=== PATIENT | female | born 1970 | race Caucasian/White ===

== ENCOUNTER 2017-04-16 08:57 | Day surgery (SDC) | payer OTHER ==
--- NOTE | 2017-04-16 04:27 | PCM.PREANE ---
Preanesthetic Assessment - Anesthesia/Transfusion/Family Hx Anesthesia History: Prior Anesthesia Without Reaction Type of Anesthesia Reaction: Excessive Nausea/Vomiting Family History of Anesthesia Reaction: Yes Family History of Anesthesia Reaction, Other: change in behavior with mom after anesthesia Transfusion History: No Prior Transfusion(s) Intubation History: Unknown - Review of Systems General: No Symptoms, Fatigue Pulmonary: No Symptoms (smokes: 1/2pack cigarettes/day times 30 years.) Cardiovascular: Palpitations Gastrointestinal: No Symptoms Neurological: No Symptoms, Headache Other: Reports: Easy Bleeding, Easy Bruising, Thyroid Problems (hypothyroid), Sinus Problem (allergic rhinits), Depression, Anxiety - Physical Assessment NPO Status Date: 04/15/17 NPO Status Time: 20:30 Pulse: 57 O2 Sat by Pulse Oximetry: 98 Respiratory Rate: 16 Blood Pressure: 108/79 Temperature: 37.4 C Height: 1.63 m Weight: 69.4 kg ASA Class: 2 Mental Status: Alert & Oriented x3 Airway Class: Mallampati = 2 Dentition: Reports: Normal Dentition (wobbly teeth bottom 3 front.), Caries Thyro-Mental Finger Breadths: 3 Mouth Opening Finger Breadths: 3 ROM/Head Extension: Full Lungs: Clear to Auscultation, Normal Respiratory Effort Cardiovascular: Regular Rate, Regular Rhythm, No Murmurs - Allergies Allergies/Adverse Reactions: Allergies Allergy/AdvReac Type Severity Reaction Status Date / Time amoxicillin Allergy Rash Verified 10/02/15 09:13 guaifenesin Allergy Rash Verified 10/02/15 09:13 Iodine and Iodide Containing Allergy Nausea Verified 10/02/15 09:43 Produc pseudoephedrine Allergy Rash Verified 10/02/15 09:13 shellfish derived Allergy Swelling Verified 10/02/15 09:43 Sulfa (Sulfonamide Allergy Anaphylactic Verified 10/02/15 09:13 Antibiotics) Shock RESPAIRE-60 Allergy Rash Uncoded 10/02/15 09:13 - Anesthesia Plan Pre-Op Medication Ordered: None - Acknowledgements Anesthesia Type Planned: General Anesthesia Pt an Appropriate Candidate for the Planned Anesthesia: Yes Alternatives and Risks of Anesthesia Discussed w Pt/Guardian: Yes Pt/Guardian Understands and Agrees with Anesthesia Plan: Yes PreAnesthesia Questionnaire - CURRENT (IN HOUSE) MEDS Current Meds: Current Medications Lactated Ringer's (Ringers, Lactated) 1,000 mls @ 125 mls/hr IV ASDIRECTED [facility] Lidocaine/Sodium Bicarbonate (Buffered Lidocaine 1% In Ns 8.4%) 0.25 ml IV ONETIME PRN PRN Reason: Prior to IV Start Sodium Chloride (Saline Flush) 10 ml FLUSH ASDIRECTED PRN PRN Reason: Keep Vein Open Discontinued Medications Cefazolin Sodium (Ancef) Confirm Administered Dose 2 gm .ROUTE .STK-MED ONE Stop: 04/16/17 04:10 Dexamethasone (Dexamethasone) Confirm Administered Dose 20 mg .ROUTE .STK-MED ONE Stop: 04/16/17 04:10 Fentanyl (Sublimaze) Confirm Administered Dose 250 mcg .ROUTE .STK-MED ONE Stop: 04/16/17 04:11 Hydromorphone HCl (Dilaudid) Confirm Administered Dose 1 mg .ROUTE .STK-MED ONE Stop: 04/16/17 04:11 Lidocaine HCl (Xylocaine-Mpf 1%) Confirm Administered Dose 4 mls @ as directed .ROUTE .STK-MED ONE Stop: 04/16/17 04:10 Lactated Ringer's (Ringers, Lactated) Confirm Administered Dose 1,000 mls @ as directed .ROUTE .STK-MED ONE Stop: 04/16/17 04:10 Ketorolac Tromethamine (Toradol) Confirm Administered Dose 30 mg .ROUTE .STK- MED ONE Stop: 04/16/17 04:10 Midazolam HCl (Versed 1 Mg/Ml) Confirm Administered Dose 2 mg .ROUTE .STK-MED ONE Stop: 04/16/17 04:11 Ondansetron HCl (Zofran) Confirm Administered Dose 4 mg .ROUTE .STK-MED ONE Stop: 04/16/17 04:10 Propofol (Diprivan 20 Ml) Confirm Administered Dose 200 mg .ROUTE .STK-MED ONE Stop: 04/16/17 04:10 Rocuronium [place] (Zemuron) Confirm Administered Dose 50 mg .ROUTE .STK-MED ONE Stop: 04/16/17 04:10
[~2017-04-16 08:57] MED LIST: Dexamethasone 4 MG/ML 5 ML MDV ONE; HYDROmorphone 1 MG/ML Syringe ONE; Ketorolac 30 MG/ML SDV ONE; Lactated Ringers 1,000 ML ONE; Lidocaine 1% 4 ML ONE; Lidocaine 1%/Sod Bicarbonate in NS 8.4% 1 ML Syringe IV PRN; Midazolam 1 MG/ML 2 ML SDV ONE; Ondansetron 4 MG/2 ML SDV ONE; Propofol 200 MG/20 ML SDV ONE; Rocuronium 50 MG/5 ML Vial ONE; Sodium Chloride 0.9% 10 ML Syringe FLUSH PRN; ceFAZolin 1 GM Vial ONE; fentaNYL 250 MCG/5 ML SDV ONE
[2017-04-16] MEDS: Lactated Ringers 1,000 ML IV SCH ×2 (09:15→15:42)
[2017-04-16] MEDS ORDERED: Bupivacaine 0.5% 30 ML SDV ONE (09:37)
[2017-04-16] MEDS ORDERED: Lidocaine 1%/Sod Bicarbonate in NS 8.4% 1 ML Syringe PRN (09:39)
[2017-04-16] MEDS ORDERED: Scopolamine 1.5 MG Transdermal Patch TRDERM ONE (09:45)
--- NOTE | 2017-04-16 11:07 | PCM.HPR ---
H & P Addendum review - H & P Addendum Review Date of Original H & P: 04/14/17 Date Reviewed: 04/16/17 Time Reviewed: 11:07 Patient was Examined: No Changes
[2017-04-16] MEDS ORDERED: fentaNYL 100 MCG/2 ML SDV IVPUSH PRN (12:21)
[2017-04-16] MEDS ORDERED: HYDROmorphone 0.5 MG/0.5 ML Syringe IVPUSH PRN (12:21)
[2017-04-16] MEDS ORDERED: Meperidine PF 50 MG/ML Syringe IVPUSH PRN (12:21)
[2017-04-16] MEDS ORDERED: Ondansetron 4 MG/2 ML SDV IVPUSH PRN (12:21)
[2017-04-16] MEDS ORDERED: diphenhydrAMINE 50 MG/ML SDV IVPUSH PRN (12:21)
[2017-04-16] MEDS ORDERED: Propofol 200 MG/20 ML SDV ONE (12:24)
[2017-04-16] MEDS ORDERED: Phenylephrine 1 MG in Sodium Chloride 0.9% 10 ML IV SCH (12:30)
[2017-04-16] MEDS ORDERED: Neostigmine Methylsulfate 1 MG/ML 5 ML Syringe ONE (12:43)
--- NOTE | 2017-04-16 13:03 | PCM.POSTAN ---
POST ANESTHESIA ASSESSMENT - MENTAL STATUS Mental Status: Alert - VITAL SIGNS Pulse Rate: 77 SaO2: 98 Resp Rate: 18 Blood Pressure: 112/70 Temperature: 36.9 C - RESPIRATORY Respiratory Status: Respiratory Rate WNL, Airway Patent, O2 Saturation Stable, Supplemental Oxygen - CARDIOVASCULAR CV Status: Pulse Rate WNL, Blood Pressure Stable - GASTROINTESTINAL GI Status: No Symptoms - POST OP HYDRATION Hydration Status: Adequate & Stable
--- NOTE | 2017-04-16 13:15 | PCM48HPAN ---
Post Anesthesia Note - EVALUATION WITHIN 48HRS OF ANESTHETIC Vital Signs in Normal Range: Yes Patient Participated in Evaluation: Yes Respiratory Function Stable: Yes Airway Patent: Yes Cardiovascular Function Stable: Yes Hydration Status Stable: Yes Pain Control Satisfactory: Yes Nausea and Vomiting Control Satisfactory: Yes Mental Status Recovered: Yes
--- NOTE | 2017-04-16 13:24 | PCM.OPNOTE ---
- General Post-Op/Procedure Note Date of Surgery/Procedure: 04/16/17 Operative Procedure(s): Laparoscopic left salpingectomy with removal of portion of broad ligament Findings: Multiple small endometriosis lesions along the left round ligament, suspected hematoma in the left broad ligament approximately 2 cm from the cornua measuring about 2-3 cm, normal appearing right ovary and fallopian tube, normal appearing uterine fundus, small amount of scarring in posterior cul-de-sac at the utersacral ligaments, normal appearing liver Pre Op Diagnosis: acute onset left sided pelvic pain and adnexal mass on U/S Post-Op Diagnosis: Same, suspected broad ligament hematoma Anesthesia Technique: General ET Tube Primary Surgeon: Dagoberto Frias Secondary Surgeon: Liam Tomlin Anesthesia Provider: Marina Roger Reason Hob Machine Operator Was Necessary: Need for laparoscopically trained care assistant Role of Hob Machine Operator: Assist with laparoscopy Pathology: Left fallopian tube and portion of broad ligament Fluid Replacement, Intraop: 1,200 Output, Urine Amount: 150 EBL in mLs: 50 Complications: None Condition: Good Free Text/Narrative:: Intake & Output 04/15/17 04/16/17 04/16/17 22:59 06:59 14:59 Output Total 150 Balance -150 PROCEDURE IN DETAIL: The patient was seen in the preoperative holding area and the risks, benefits and alternatives of the procedure were reviewed. The patient desired to proceed with the surgery, and consents were reviewed. The patient was taken back to the operating room and given general anesthesia with an endotracheal tube that was placed without difficulty. She was placed in the dorsal lithotomy position using Yellofin stirrups. She was prepped and draped in the normal sterile fashion. A time-out was held to confirm the correct patient, correct surgery and correct location. Local anesthetic of lidocaine was injected infraumbilically. A 5-mm incision was made with the scalpel. A Veress needle was inserted through the infraumbilical incision. The gas was turned on. The opening pressure was noted to be 3 mmHg. A pneumoperitoneum was made until 15 mmHg were noted. A 5-mm trocar was inserted under direct visualization of the laparoscope. The laparoscope was inserted into the pneumoperitoneum, and a global view was noted to have normal liver, bowel and uterus. Attention was then turned to the left lower quadrant, where local anesthetic was injected approximately jail between the ASIS and the umbilicus. A 5-mm incision was made with the scalpel. A 5-mm trocar was inserted under direct visualization with the laparoscope. Attention was then turned to the right lower quadrant and local anesthetic was injected subcutaneously approximately jail between the right side ASIS and the umbilicus, and a 5-mm incision was made using the scalpel. A 5-mm trocar was inserted under direct visualization with the laparoscope. An area approximately 2 cm superior to the pubic symphysis was injected with local anesthetic and a 10 mm incision was made with a scalpel. A 10 mm trocar was inserted under direct visualization. Attention was then turned to the pelvis and the left adnexa was examined. There was noted to be multiple small endometriosis lesions around the left round ligament. The left fallopian tube was overall normal but there was an area approximately 3 cm from the cornua where there was noted to be a disruption of the overlying mucosa and a 2-3 cm suspected hematoma within the broad ligament. The fallopian tube was then grasped and a Ligasure Endoseal device was used to excise the fallopian tube and broad ligament below the hematoma. An endocatch bag was introduced and used to extract the specimen. This was sent to pathology. The surgical bed was examined and a small arterial vessel was noted to have bleeding and this was sealed using the Endoseal. The edges of the surgical bed were further cauterized using the Endoseal device. The surgical bed was irrigated and hemostasis was assured. The right fallopian tube and ovary were inspected and noted to be normal. The uterine fundus was normal appearing except for some scarring in the posterior cul-de-sac near the uterosacral ligaments. A global view of the abdomen was normal including the liver, omentum and bowel. The procedure was complete at this time. A Santhosh-Michele closure device was used to close the suprapubic port with 0-Vicryl suture. The gas was removed from the abdomen. The skin was closed using 3-0 Monocryl suture in the suprapubic port in a running fashion. An interrupted suture of 3-0 Vicryl was used to close the left lower quadrant port site. The remainder of the skin incisions were closed using Dermabond skin glue. The patient tolerated the procedure well. She was taken back to the PACU, where she was observed for appropriate pain control, a voiding trial and ambulation trial. She was given strict postoperative precautions and will follow up in 2 weeks or sooner if there are any problems that arise.
== END 2017-04-16 16:50 | disposition home or self-care (01) ==
LOC: JD.SDS 08:57
PROVIDERS: ATTEND Obstetrics & Gynecology
DX: N80.2 Endometriosis of fallopian tube (principal); N83.8 Other noninflammatory disorders of ovary, fallopian tube and broad ligament; F41.8 Other specified anxiety disorders; E03.9 Hypothyroidism, unspecified; Z88.2 Allergy status to sulfonamides; Z88.8 Allergy status to other drugs, medicaments and biological substances; Z91.041 Radiographic dye allergy status; Z88.1 Allergy status to other antibiotic agents; Z91.013 Allergy to seafood; Z79.899 Other long term (current) drug therapy; F17.210 Nicotine dependence, cigarettes, uncomplicated
CPT/HCPCS: 36415; 58661; 80048; 81025; 85025; 85730; 86850; 86900; 86901; A9270; J1100; J1170; J1200; J1885; J2250; J2405; J2710; J3010; J7120; 00840; J0690; J2704

== ENCOUNTER 2019-04-26 20:27 | Emergency (ER) | payer OTHER ==
[2019-04-26] MEDS ORDERED: Ketorolac 30 MG/ML SDV IVPUSH ONE (20:47)
[2019-04-26] MEDS ORDERED: diphenhydrAMINE 50 MG/ML SDV IVPUSH ONE (20:47)
[2019-04-26] MEDS ORDERED: Sodium Chloride 0.9% 10 ML Syringe FLUSH PRN (20:47)
[2019-04-26] MEDS ORDERED: Metoclopramide 10 MG/2 ML SDV IVPUSH ONE (20:47)
--- NOTE | 2019-04-26 20:59 | EDM.PDOC ---
ED HPI GENERAL MEDICAL PROBLEM - General Chief Complaint: Headache Stated Complaint: HEADACHE Time Seen by Provider: 04/26/19 20:39 Source of Information: Reports: Patient History Limitations: Reports: No Limitations - History of Present Illness INITIAL COMMENTS - FREE TEXT/NARRATIVE: The patient presents with a left sided headache. She woke up with it this morning. The paint got worse about 2 hours ago. She has no numbness or weakness. She does have some photophobia. She has nausea but no vomiting. She has a history of headaches like this but it has been years. The pain gets more intense at times. She did get a little dizzy tonight and that prompted her to be evaluated. She has no fever but she does have chills. She has no chest pain or shortness of breath. She has no abdominal pain. She has no rash to the affected area. Onset: Gradual Duration: Hour(s): Location: Reports: Head Quality: Reports: Sharp Severity: Severe Improves with: Reports: None Worsens with: Reports: None Associated Symptoms: Reports: Headaches, Nausea/Vomiting. Denies: Chest Pain, Cough, Fever/Chills, Shortness of Breath Left Headache Pain Score (Numeric/FACES): 9 - Related Data Allergies Allergy/AdvReac Type Severity Reaction Status Date / Time amoxicillin Allergy Rash Verified 04/26/19 20:38 guaifenesin Allergy Rash Verified 04/26/19 20:38 pseudoephedrine Allergy Rash Verified 04/26/19 20:38 shellfish derived Allergy Swelling Verified 04/26/19 20:38 Sulfa (Sulfonamide Allergy Anaphylactic Verified 04/26/19 20:38 Antibiotics) Shock Iodine and Iodide Containing AdvReac Intermediate Nausea Verified 04/26/19 20:38 Produc hydrocodone AdvReac Hallucinati Verified 04/26/19 20:38 ons oxycodone AdvReac Hallucinati Verified 04/26/19 20:38 ons propoxyphene AdvReac Hallucinati Verified 04/26/19 20:38 ons Home Meds: Home Meds Escitalopram [Lexapro] 1 tab PO DAILY 04/16/17 [History] Levothyroxine [Synthroid] 1 tab PO DAILY 04/16/17 [History] Diclofenac Sodium [Voltaren] 04/26/19 [History] Past Medical History 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 Denies: Abdominal Pain, Vomiting : Reports: No Symptoms Musculoskeletal: Reports: No Symptoms Skin: Reports: No Symptoms Neurological: Reports: Dizziness, Headache - Physical Exam Exam: See Below Exam Limited By: No Limitations General Appearance: Alert, No Apparent Distress Ears: Normal External Exam Nose: Normal Inspection Head Exam: Atraumatic, Normocephalic Neck: Normal Inspection Respiratory/Chest: No Respiratory Distress, Lungs Clear, Normal Breath Sounds Cardiovascular: Regular Rate, Rhythm, No Edema, No Murmur GI/Abdominal: Soft, Non-Tender, No Organomegaly, No Mass Neuro Exam (Abbreviated): Alert, Oriented, No Motor/Sensory Deficits Course - Vital Signs Last Recorded V/S: Last Vital Signs Temp 98.6 F 04/26/19 20:38 Pulse 54 L 04/26/19 20:38 Resp 18 04/26/19 20:38 BP 148/83 H 04/26/19 20:38 Pulse Ox 98 04/26/19 20:38 - Orders/Labs/Meds Orders: Active Orders 24 hr Category Date Time Status Peripheral IV Care [RC] . DIRECTED Care 04/26/19 20:47 Active Head wo Cont [CT] Stat Exams 04/26/19 21:17 Taken Sodium Chloride 0.9% [Saline Flush] Med 04/26/19 20:47 Active 10 ml FLUSH ASDIRECTED PRN Peripheral IV Insertion Adult [OM.PC] Routine Oth 04/26/19 20:47 Ordered Medication Orders Sodium Chloride (Saline Flush) 10 ml FLUSH ASDIRECTED PRN PRN Reason: Keep Vein Open Last Admin: 04/26/19 21:17 Dose: 10 ml Meds: Medications Generic Name Dose Route Start Last Admin Trade Name Freq PRN Reason Stop Dose Admin Sodium Chloride 10 ml 04/26/19 20:47 04/26/19 21:17 Saline Flush FLUSH 10 ml ASDIRECTED PRN Administration Keep Vein Open Discontinued Medications Generic Name Dose Route Start Last Admin Trade Name Nishant PRN Reason Stop Dose Admin Diphenhydramine HCl 50 mg 04/26/19 20:47 04/26/19 21:13 Benadryl IVPUSH 04/26/19 20:48 50 mg ONETIME ONE Administration Ketorolac Tromethamine 30 mg 04/26/19 20:47 04/26/19 21:10 Toradol IVPUSH 04/26/19 20:48 30 mg ONETIME ONE Administration Metoclopramide HCl 10 mg 04/26/19 20:47 04/26/19 21:07 Reglan IVPUSH 04/26/19 20:48 10 mg ONETIME ONE Administration - Re-Assessments/Exams Free Text/Narrative Re-Assessment/Exam: 04/26/19 20:59 I have ordered a CT of her head, IV saline lock, reglan 10mg IV, toradol 30mg IV and benadryl 50mg IV. 04/26/19 22:[address] looks good. She is resting now. She feels better. I will discharge her home. Departure - Departure Time of Disposition: 22:35 Disposition: Home, Self-Care 01 Condition: Good Clinical Impression: Migraine - Discharge Information *PRESCRIPTION DRUG MONITORING PROGRAM REVIEWED*: No *COPY OF PRESCRIPTION DRUG MONITORING REPORT IN PATIENT JONO: No Referrals: Dana Busby, PRODUCTION MATERIAL HANDLER [Primary Care Provider] - 1 Week Forms: ED Department Discharge Additional Instructions: Go home and rest. Take tylenol or motrin for any more headache. Please return if you are worse. - My Orders Last 24 Hours: My Active Orders 04/26/19 20:47 Peripheral IV Care [RC] . DIRECTED Sodium Chloride 0.9% [Saline Flush] 10 ml FLUSH ASDIRECTED PRN Peripheral IV Insertion Adult [OM.PC] Routine 04/26/19 21:17 Head wo Cont [CT] Stat - Assessment/Plan Last 24 Hours: My Active Orders 04/26/19 20:47 Peripheral IV Care [RC] . DIRECTED Sodium Chloride 0.9% [Saline Flush] 10 ml FLUSH ASDIRECTED PRN Peripheral IV Insertion Adult [OM.PC] Routine 04/26/19 21:17 Head wo Cont [CT] Stat
--- NOTE | 2019-04-28 12:36 | CT ---
Head CT Technique: Multiple axial sections through the brain were obtained. Intravenous contrast was not utilized. Comparison: No previous intracranial imaging. Findings: Ventricles along with basal cisterns and sulci over the convexities are within normal limits for the patient's age. No abnormal parenchymal densities are seen. No evidence of intracranial hemorrhage. No midline shift or mass effect is seen. Bone window settings were reviewed which show the visualized paranasal sinuses to appear clear. There is mucosal thickening within the right mastoid sinus. Left mastoid sinus is clear. Impression: 1. Mucosal thickening within the right mastoid sinus. This is likely incidental unless patient has symptoms of right-sided mastoiditis. 2. Nothing acute is otherwise appreciated on noncontrast head CT exam. Slightly disagree with preliminary report issued by [facility], (mucosal thickening is seen within the right mastoid sinus), preliminary report was finalized on 04/26/19 at 11 PM Central Time Diagnostic code #2
== END 2019-04-26 23:15 | disposition home or self-care (01) ==
LOC: JD.ED 20:27
DX: G43.909 Migraine, unspecified, not intractable, without status migrainosus (principal); F17.210 Nicotine dependence, cigarettes, uncomplicated; Z88.0 Allergy status to penicillin; Z88.2 Allergy status to sulfonamides; Z88.5 Allergy status to narcotic agent; Z88.6 Allergy status to analgesic agent; Z88.8 Allergy status to other drugs, medicaments and biological substances; Z91.013 Allergy to seafood; Z91.041 Radiographic dye allergy status
CPT/HCPCS: 70450; 96374; 96375; 99284; J1200; J1885; J2765; 99283

== ENCOUNTER 2020-09-23 20:43 | Emergency (ER) | payer OTHER ==
[2020-09-23] MEDS ORDERED: Mineral Oil 10 ML Bottle TOP ONE (20:52)
--- NOTE | 2020-09-23 21:08 | EDM.PDOC ---
ED HPI GENERAL MEDICAL PROBLEM - General Chief Complaint: ENT Problem Stated Complaint: SOMETHING/POSS A BUG IN RIGHT EAR Time Seen by Provider: 09/23/20 20:51 Source of Information: Reports: Patient, RN Notes Reviewed History Limitations: Reports: No Limitations - History of Present Illness INITIAL COMMENTS - FREE TEXT/NARRATIVE: Patient is a 50-year-old female who presents to the ER for a foreign body sensation in her right ear. Notes she was driving just prior to coming to the ER, when she felt something in her ear, and went to stick her finger in her ear, she notes that she felt a crunch, and brought her finger out and had some sort of black debris within her fingernail, she states she flipped this across her car as she was startled. She is not sure what is in the ear, but comes to the ER to have it evaluated. Patient denies any other sick-like symptoms, fever/chills, cough/shortness of breath, nausea/vomiting/diarrhea. Right Ear Pain Score (Numeric/FACES): 6 - Related Data Allergies Allergy/AdvReac Type Severity Reaction Status Date / Time amoxicillin Allergy Rash Verified 09/23/20 20:55 guaifenesin Allergy Rash Verified 09/23/20 20:55 pseudoephedrine Allergy Rash Verified 09/23/20 20:55 shellfish derived Allergy Swelling Verified 09/23/20 20:55 Sulfa (Sulfonamide Allergy Anaphylactic Verified 09/23/20 20:55 Antibiotics) Shock Iodine and Iodide Containing AdvReac Intermediate Nausea Verified 09/23/20 20:55 Produc hydrocodone AdvReac Hallucinati Verified 09/23/20 20:55 ons oxycodone AdvReac Hallucinati Verified 09/23/20 20:55 ons propoxyphene AdvReac Hallucinati Verified 09/23/20 20:55 ons Home Meds: Home Meds Escitalopram [Lexapro] 1 tab PO DAILY 04/16/17 [History] Levothyroxine [Synthroid] 1 tab PO DAILY 04/16/17 [History] Past Medical History 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 ED EXAM, ENT - Physical Exam Exam: See Below Exam Limited By: No Limitations General Appearance: Alert, WD/WN, No Apparent Distress Ears: Normal External Exam, Hearing Grossly Normal, Normal TMs, Canal Foreign Body (there was a small dark lesion to the patient's EAC, roughly at 6 o clock with some areas of surrounding bright red blood; but not actively bleeding.). No: Auricular Tenderness, Canal Discharge, Canal Swelling Respiratory/Chest: No Respiratory Distress, Lungs Clear, Normal Breath Sounds, No Accessory Muscle Use, Chest Non-Tender Cardiovascular: Normal Peripheral Pulses, Regular Rate, Rhythm, No Edema Skin: Warm, Dry, Intact, Normal Color, No Rash ED ENT PROCEDURES - Foreign Body Removal Indication:: foreign body sensation in right ear Consent Obtained: Patient Performing Doctor:: Valerie Martinez V Anesthesia Type: None Findings: as the foreign body was visualized with the otoscope, I did retrieve this with a tweezers. there is some trauma to the 6 o clock portion of the patients right EAC. Appears to maybe be a fingernail scratch. Complications: No Course - Vital Signs Last Recorded V/S: Last Vital Signs Temp 96.2 F L 09/23/20 20:55 Pulse 65 09/23/20 20:55 Resp 16 09/23/20 20:55 BP 143/79 H 09/23/20 20:55 Pulse Ox 97 09/23/20 20:55 - Orders/Labs/Meds Meds: Medications Discontinued Medications Generic Name Dose Route Start Last Admin Trade Name Freq PRN Reason Stop Dose Admin Mineral Oil 15 ml 09/23/20 20:52 Mineral Oil 10 Ml Bottle TOP 09/23/20 20:53 ONETIME ONE Departure - Departure Time of Disposition: 21:04 Disposition: Home, Self-Care 01 Condition: Good Clinical Impression: Foreign body in ear Qualifiers: Encounter type: initial encounter Laterality: right Qualified Code(s): T16.1XXA - Foreign body in right ear, initial encounter - Discharge Information *PRESCRIPTION DRUG MONITORING PROGRAM REVIEWED*: No *COPY OF PRESCRIPTION DRUG MONITORING REPORT IN PATIENT JONO: No Instructions: Ear Foreign Body, [id number] Referrals: Dana Busby HOTEL ATTENDANT [Primary Care Provider] - Forms: ED Department Discharge Additional Instructions: You were seen in this ER for a foreign body sensation in your right ear. A small piece of debris was taken out of your right ear canal, it did appear to have a dried blood tint to it likely a portion of it could be previous scab from your ear. In your ear canal, there was some trauma to the bottom portion of your canal, but it was not actively bleeding at this visit. You may use some topical bacitracin ointment on a Q-tip, that is lightly pressed within the ear canal 2 or 3 times a day. Again this will need to be lightly put in the ear canal, please do not put the Q-tip all the way into the eardrum as this could cause trauma to your eardrum. As your body warms the bacitracin, it will liquefy a little bit, and should get to the area of concern without difficulty. If you notice any sort of drainage/swelling, or increased pain to the ear, please seek care for evaluation to have the ear checked out once again. Please return to the ER at any time if symptoms change or worsen. Sepsis Event Note (ED) - Evaluation Sepsis Screening Result: No Definite Risk - Focused Exam Vital Signs: Vital Signs Temp Pulse Resp BP Pulse Ox 09/23/20 20:55 96.2 F L 65 16 143/79 H 97
== END 2020-09-23 21:15 | disposition home or self-care (01) ==
LOC: JD.ED 20:43
DX: T16.1XXA Foreign body in right ear, initial encounter (principal); E03.9 Hypothyroidism, unspecified; Z88.0 Allergy status to penicillin; Z91.013 Allergy to seafood; Z88.8 Allergy status to other drugs, medicaments and biological substances; Z88.2 Allergy status to sulfonamides; Z88.5 Allergy status to narcotic agent; Z91.041 Radiographic dye allergy status; Z79.899 Other long term (current) drug therapy
CPT/HCPCS: 69200; 99282

== ENCOUNTER 2023-09-19 15:01 | Emergency (ER) | payer BC ==
[2023-09-19 16:02] LABS: BASOPHILS PERCENT AUTO 0.2 % (0.0-1.0); EOSINOPHILS ABSOLUTE AUTO 0.1 K/mm3 (0.0-0.4); HEMATOCRIT 40.7 % (37.0-47.0); HEMOGLOBIN 13.7 gm/dl (12.0-16.0); IMMATURE GRAN ABSOLUTE AUTO 0.01 K/mm3 (0.00-0.05); IMMATURE GRAN PERCENT AUTO 0.2 % (0.0-0.4); LYMPHOCYTES ABSOLUTE AUTO 0.9 K/mm3 (1.0-4.8); LYMPHOCYTES PERCENT AUTO 19.1 % (24.0-44.0); MEAN CORPUSCULAR HEMOGLOBIN 30.5 pg (28.0-32.0); MEAN CORPUSCULAR HGB CONC 33.7 g/dl (32.0-36.0); MEAN CORPUSCULAR VOLUME 90.6 fl (83.0-99.0); MEAN PLATELET VOLUME 9.8 fl (9.4-12.3); MONOCYTES ABSOLUTE AUTO 0.5 K/mm3 (0.0-0.8); MONOCYTES PERCENT AUTO 9.8 % (0.0-8.0); NEUTROPHILS ABSOLUTE AUTO 3.4 K/mm3 (1.8-7.7); NEUTROPHILS PERCENT AUTO 69.7 % (41.0-71.0); PLATELET COUNT,PLT 167 K/mm3 (150-400); RED BLOOD CELL COUNT 4.49 M/mm3 (4.10-5.30); WHITE BLOOD CELL COUNT,WBC 4.91 K/mm3 (3.9-11.3)
[2023-09-19] MEDS: Sodium Chloride 0.9% 1,000 ML IV SCH (16:17)
[2023-09-19] MEDS: Prochlorperazine 10 MG/2 ML SDV IVPUSH ONE (16:17)
[2023-09-19] MEDS: Sodium Chloride 0.9% 10 ML Syringe FLUSH ONE (16:17)
[2023-09-19 16:26] LABS: ALBUMIN 3.3 g/dl (3.4-5.0); ANION GAP 14.3 (5-15); BILIRUBIN TOTAL 0.5 mg/dL (0.2-1.0); BUN/CREATININE RATIO 8.8 (14-18); C-REACTIVE PROTEIN 0.44 mg/dL (<0.30); CALCIUM 8.9 mg/dL (8.5-10.1); CREATININE 0.8 mg/dL (0.55-1.02); EST CRCL DRUG DOSING (CG) 73.18 mL/min; MAGNESIUM 1.8 mg/dL (1.8-2.4); POTASSIUM,K 3.3 mEq/L (3.5-5.1); PROTEIN TOTAL,TP 6.7 g/dl (6.4-8.2)
[2023-09-19] MEDS: HYDROmorphone 0.5 MG/0.5 ML Syringe IVPUSH ONE ×2 (16:28→16:29)
[2023-09-19] MEDS: Loperamide 2 MG Cap PO ONE (16:29)
[2023-09-19] MEDS: Iopamidol 612 MG/ML 100 ML Bottle IVPUSH ONE (16:51)
[2023-09-19] MEDS: Sucralfate Suspension 1 GM/10 ML Cup PO ONE (17:31)
[2023-09-19 17:35] LABS: APPEARANCE,URINE CLEAR (Clear); BILIRUBIN,URINE NEGATIVE (Negative); COLOR,URINE YELLOW (Yellow); GLUCOSE,URINE NEGATIVE (Negative); KETONES,URINE NEGATIVE (Negative); LEUKOCYTE ESTERASE,URINE NEGATIVE (Negative); NITRITE,URINE NEGATIVE (Negative); OCCULT BLOOD,URINE TRACE-INTACT (Negative); PH,URINE 6.5 (5.0-8.0); PROTEIN,URINE NEGATIVE (Negative); UROBILINOGEN,URINE 0.2 (0.2-1.0)
[2023-09-19 17:49] LABS: BACTERIA,URINE FEW /hpf (FEW); RBC,URINE 0-5 /hpf (0-5); SQUAMOUS EPITHELIAL CELLS,UR 0-5 /hpf (0-5); WBC,URINE 0-5 /hpf (0-5)
[2023-09-19 17:50] LABS: MUCUS,URINE FEW /hpf (FEW)
== END 2023-09-19 18:09 | disposition home or self-care (01) ==
LOC: JD.ED 15:01
DX: R19.7 Diarrhea, unspecified (principal); E87.6 Hypokalemia; E03.9 Hypothyroidism, unspecified; Z88.0 Allergy status to penicillin; Z88.8 Allergy status to other drugs, medicaments and biological substances; Z88.2 Allergy status to sulfonamides; Z91.013 Allergy to seafood; Z88.5 Allergy status to narcotic agent; Z79.899 Other long term (current) drug therapy
CPT/HCPCS: 36415; 74177; 80053; 81001; 83690; 83735; 85025; 86140; 96361; 96374; 96375; 99284; A9270; J0780; J1170; J3490; J7030; Q9967

== ENCOUNTER 2023-09-20 18:32 | Emergency (ER) | payer BC ==
[2023-09-20] MEDS ORDERED: Famotidine 20 MG/2 ML SDV IVPUSH ONE (19:33)
[2023-09-20] MEDS ORDERED: Aluminum Hydroxide/Magnesium Hydroxide/Simethicone Susp 30 ML Cup PO ONE (19:33)
== END 2023-09-20 20:00 | disposition home or self-care (01) ==
LOC: JD.ED 18:32
DX: K29.70 Gastritis, unspecified, without bleeding (principal); E03.9 Hypothyroidism, unspecified; F17.210 Nicotine dependence, cigarettes, uncomplicated; Z86.16 Personal history of COVID-19; Z88.0 Allergy status to penicillin; Z88.2 Allergy status to sulfonamides; Z91.041 Radiographic dye allergy status; Z91.013 Allergy to seafood; Z88.8 Allergy status to other drugs, medicaments and biological substances; Z79.899 Other long term (current) drug therapy
CPT/HCPCS: 99283

== ENCOUNTER → 2024-05-23 | Day surgery (SDC) | payer BC ==
[~2024-05-23] MED LIST changes: -Dexamethasone 4 MG/ML 5 ML MDV ONE; +HYDROmorphone 0.5 MG/0.5 ML Syringe IVPUSH PRN; -HYDROmorphone 1 MG/ML Syringe ONE; -Ketorolac 30 MG/ML SDV ONE; +Lactated Ringers 1,000 ML IV SCH; -Lactated Ringers 1,000 ML ONE; -Lidocaine 1% 4 ML ONE; -Lidocaine 1%/Sod Bicarbonate in NS 8.4% 1 ML Syringe IV PRN; +Lidocaine 2% 5 ML SDV ONE; -Midazolam 1 MG/ML 2 ML SDV ONE; +Ondansetron 4 MG/2 ML SDV IVPUSH PRN; -Ondansetron 4 MG/2 ML SDV ONE; -Rocuronium 50 MG/5 ML Vial ONE; +Sodium Chloride 0.9% 10 ML Syringe FLUSH SCH; -ceFAZolin 1 GM Vial ONE; +fentaNYL 100 MCG/2 ML SDV IVPUSH PRN; -fentaNYL 250 MCG/5 ML SDV ONE
== END | disposition home or self-care (01) ==
LOC: JD.SDS 07:32
PROVIDERS: ATTEND Surgery
DX: Z12.11 Encounter for screening for malignant neoplasm of colon (principal); D12.3 Benign neoplasm of transverse colon; D12.4 Benign neoplasm of descending colon; F41.9 Anxiety disorder, unspecified; E03.9 Hypothyroidism, unspecified; Z79.890 Hormone replacement therapy; Z79.899 Other long term (current) drug therapy; Z88.0 Allergy status to penicillin; Z88.2 Allergy status to sulfonamides; Z91.041 Radiographic dye allergy status
CPT/HCPCS: 43239; 45380; J2704; 00813; J3490

== ENCOUNTER 2024-11-08 09:47 | Emergency (ER) | payer BC ==
[2024-11-08] MEDS: Sodium Chloride 0.9% 10 ML Syringe FLUSH PRN (11:46)
[2024-11-08] MEDS: Iopamidol 755 Mg/ML 100 ML Bottle IVPUSH ONE (11:46)
[2024-11-08] MEDS: Sodium Chloride 0.9% 100 ML IV SCH (11:47)
== END 2024-11-08 13:40 | disposition home or self-care (01) ==
LOC: JD.ED 09:47
DX: M79.89 Other specified soft tissue disorders (principal); E03.9 Hypothyroidism, unspecified; Z86.16 Personal history of COVID-19; Z88.1 Allergy status to other antibiotic agents; Z88.0 Allergy status to penicillin; Z88.2 Allergy status to sulfonamides; Z88.5 Allergy status to narcotic agent; Z88.8 Allergy status to other drugs, medicaments and biological substances; Z91.041 Radiographic dye allergy status; Z91.013 Allergy to seafood; Z79.890 Hormone replacement therapy; Z79.899 Other long term (current) drug therapy
CPT/HCPCS: 73206-26-RT; 73206-RT; 99284; Q9967